=== PATIENT | male | born 1995 | race Caucasian/White ===

== ENCOUNTER 2021-06-01 12:07 | Emergency (ER) | payer BC ==
[~2021-06-01] VITALS: Ht 182.9 cm; Wt 104.5 kg
[2021-06-01 12:19] VITALS: BP 139/99
== END 2021-06-01 12:40 | disposition home or self-care (01) ==
LOC: ER 12:09
DX: S81.832D Puncture wound without foreign body, left lower leg, subsequent encounter (principal); Z48.00 Encounter for change or removal of nonsurgical wound dressing; X58.XXXD Exposure to other specified factors, subsequent encounter
CPT/HCPCS: 99281

== ENCOUNTER 2021-09-21 16:31 | Emergency (ER) | payer BC, OTHER ==
[~2021-09-21] VITALS: Ht 182.9 cm; Wt 106.8 kg
[2021-09-21 17:32] LABS: BASOPHILS # (AUTO) 0.1 X10'3 (0-0.2); BASOPHILS % (AUTO) 0.4 % (0-1); EOSINOPHILS # (AUTO) 0.1 X10'3 (0-0.9); EOSINOPHILS % (AUTO) 0.9 % (0-6); HEMATOCRIT 44.1 % (42.0-52.0); HEMOGLOBIN 15.4 g/dl (14.0-17.9); LYMPHOCYTES # (AUTO) 2.7 X10'3 (1.1-4.8); LYMPHOCYTES % (AUTO) 19.9 % (21-51); MEAN CORPUSCULAR HEMOGLOBIN 30.9 PG (27.0-31.0); MEAN CORPUSCULAR HGB CONC 34.9 g/dL (33.0-36.5); MEAN CORPUSCULAR VOLUME 88.7 FL (78-98); MEAN PLATELET VOLUME 7.8 FL (7.4-10.4); MONOCYTES # (AUTO) 1.8 X10'3 (0-0.9); MONOCYTES % (AUTO) 13.1 % (2-12); NEUTROPHILS # (AUTO) 8.9 X10'3 (1.8-7.7); NEUTROPHILS % (AUTO) 65.7 % (42-75); PLATELET COUNT 287 X10'3 (140-440); RED BLOOD COUNT 4.98 X10'6 (4.70-6.10); RED CELL DISTRIBUTION WIDTH 13.2 % (11.5-14.5); WHITE BLOOD COUNT 13.5 X10'3 (4.5-11.0)
[2021-09-21 17:54] LABS: ALANINE AMINOTRANSFERASE 55 U/L (12-78); ALBUMIN 4.4 G/DL (3.4-5.0); ALBUMIN/GLOBULIN RATIO 1.1 (1.1-1.5); ALKALINE PHOSPHATASE 147 IU/L (46-116); ANION GAP 9 (8-16); ASPARTATE AMINO TRANSFERASE 37 U/L (10-37); BILIRUBIN,TOTAL 0.3 MG/DL (0.1-1.0); BLOOD UREA NITROGEN 21 MG/DL (7-18); BUN/CREATININE RATIO 17.6 (5.4-32.0); CALCIUM 9.1 MG/DL (8.5-10.1); CHLORIDE 101 MMOL/L (99-107); CREATININE 1.19 MG/DL (0.60-1.10); POTASSIUM 4.2 MMOL/L (3.5-5.1); SODIUM 138 MMOL/L (135-145); TOTAL CARBON DIOXIDE 27.8 MMOL/L (24-32); TOTAL PROTEIN 8.3 G/DL (6.4-8.2); eGFR 73 ML/MIN
[2021-09-21 17:56] LABS: GLUCOSE 114 MG/DL (70-104)
[2021-09-21] MEDS ORDERED: gentamicin 0.1% topical ointment 15gm TP SCH (19:50)
[2021-09-21] MEDS ORDERED: LIDOcaine 40mg/ml topical solution MM ONE (19:50)
[2021-09-21] MEDS ORDERED: CEPH-585 PO (21:18)
[2021-09-21 21:41] VITALS: BP 128/82
== END 2021-09-21 21:44 | disposition home or self-care (01) ==
LOC: ER 16:31
DX: S80.812A Abrasion, left lower leg, initial encounter (principal); L03.116 Cellulitis of left lower limb; Z79.2 Long term (current) use of antibiotics; Z87.891 Personal history of nicotine dependence; Z72.89 Other problems related to lifestyle; Z86.718 Personal history of other venous thrombosis and embolism; X58.XXXA Exposure to other specified factors, initial encounter; Y93.89 Activity, other specified; Y92.89 Other specified places as the place of occurrence of the external cause; Y99.8 Other external cause status
CPT/HCPCS: 36415; 80053; 84145; 85025; 97597; 99285; J3490; 99283

== ENCOUNTER 2023-09-11 02:12 | Emergency (ER) | payer BC, OTHER ==
[~2023-09-11] VITALS: Ht 182.9 cm; Wt 110.0 kg
[2023-09-11 02:26] VITALS: TEMP 98.9
[2023-09-11] MEDS ORDERED: CEPH-585 PO (06:45)
[2023-09-11] MEDS ORDERED: SULF1TAB45 PO (06:45)
[2023-09-11 06:57] VITALS: BP 145/85; PULSE 85; RESP 16; O2SAT 98
== END 2023-09-11 07:00 | disposition home or self-care (01) ==
LOC: ER 02:12
DX: L03.114 Cellulitis of left upper limb (principal)
CPT/HCPCS: 73130; 99283

== ENCOUNTER 2025-04-29 16:59 | Emergency (ER) | payer BC ==
[~2025-04-29] VITALS: Ht 182.9 cm; Wt 111.4 kg
--- NOTE | 2025-04-29 18:20 | Physician Documentation ---
History of Present Illness ~ Chief Complaint: Leg Pain Stated Complaint: L LEG PAIN Time Seen by MD: 17:59 Source: patient Mode of Arrival: Ambulatory Exam Limitations: no limitations HPI 29-year-old male with some self for fasting anxiety is concerned because of left posterior calf pain times 3-4 days although patient frequency gym regularly and does work out his legs he was worried when he calf pain about a DVT. According to triage there is a small less than 2 cm discrepancy in calf size. Patient denies any shortness of breath or chest pain does state that his pectoralis muscle is sore but reproducible also from working out as well as slightly hung over from drinking heavily last night Tetanus witin 5 years: No Medication Reconciliation Allergies: Coded Allergies: No Known Allergies (Unverified , 09/21/21) Past Medical History Past Medical History: Vascular Disease, *PSYCH*, Anxiety Past Surgical History: noncontributory Alcohol Use: Occasionally Drug Use: none Lives In: Home Occupation: employed Review of Systems All Other Systems at this time: Reviewed and Negative Musculoskeletal: Reports: see HPI Physical Exam Vital Signs: RN Vital Signs have been reviewed: Yes, Temperature: 98.2, Source: Temporal, Heart Rate: 94, Respiratory Rate: 18, BP: 152/92, Pulse Oximetry: 95, Weight: 111.360 Oxygen Flow Rate: 0 Physical Exam General: Alert, no apparent distress. HEENT: moist mucous membranes. Neck: Full range of motion. Respiratory: No respiratory distress speaking in full sentences Chest: No accessory muscle use. Cardiovascular: Appears well perfused Extremities: Left posterior calf tenderness without erythema no asymmetry. No popliteal fossa tenderness Neurologic: Oriented x4. Psychiatric: Normal mood and affect. Skin: Normal color, warm and dry. No edema, no ecchymosis. Progress Results/Orders Results/Orders Orders - ABBEY BRYAN NP Vl Venous (04/29/25 17:33) Vital Signs 04/29/25 04/29/25 04/29/25 17:18 18:01 18:09 Temp 98.2 Pulse 92 94 Resp 16 18 B/P (MAP) 146/84 152/92 (112) Pulse Ox 96 95 O2 Flow Rate 0 0 Medical Decision Making Findings Patient concerned for left calf pain for DVT denies any clotting for coag history, no smoking, no anabolic steroid use. Ultrasound to evaluate for DVT has been ordered and unremarkable for any significant findings. This is likely musculoskeletal pain from activities at the gym. Patient will continue to monitor and follow up with primary care Wells' Criteria for DVT from [email or web address] on 04/29/2025 All calculations should be rechecked by clinician prior to use RESULT SUMMARY: 1 points Moderate risk group for DVT. See Next Steps for details. INPUTS: Active cancer > 0 = No Bedridden recently >3 days or major surgery within 12 weeks > 0 = No Calf swelling >3 cm compared to the other leg > 0 = No Collateral (nonvaricose) superficial veins present > 0 = No Entire leg swollen > 0 = No Localized tenderness along the deep venous system > 1 = Yes Pitting edema, confined to symptomatic leg > 0 = No Paralysis, paresis, or recent plaster immobilization of the lower extremity > 0 = No Previously documented DVT > 0 = No Alternative diagnosis to DVT as likely or more likely > 0 = No Departure Time of Disposition: 19:09 Disposition: 01 HOME / SELF CARE / HOMELESS Impression: Primary Impression: Lower extremity sprain Condition: Stable Discharge Instructions: Muscle Strain, [id number], RICE Therapy for Routine Care of Injuries, [id number] Additional Instructions: Ultrasound was negative for blood clot. This could be a muscle strain or sore muscles from working out at the gym or pitting your leg on a desk as we discussed. Follow up with your primary care provider at [facility] for annual labs and evaluation. Feel free to return to the ER for any new or worsening symptoms Referrals: NO PRIMARY CARE PROVIDER (PCP) Education Educated: Patient Educated regarding: diagnosis, treatment, need for follow up Signature Scribe Signature: No scribe Attestation: The note accurately reflects work and decisions made by me.Abbey Bryan - PRASANNA 04/29/25 18:21 ABBEY BRYAN NP Apr 29, 2025 18:19
[2025-04-29 19:57] VITALS: BP 143/83; PULSE 85; RESP 12; TEMP 98.2; O2SAT 96
== END 2025-04-29 20:00 | disposition home or self-care (01) ==
LOC: ER 17:00
DX: S93.692A Other sprain of left foot, initial encounter (principal); F41.9 Anxiety disorder, unspecified; Z86.718 Personal history of other venous thrombosis and embolism; Z72.89 Other problems related to lifestyle; X58.XXXA Exposure to other specified factors, initial encounter; Y93.89 Activity, other specified; Y92.89 Other specified places as the place of occurrence of the external cause; Y99.8 Other external cause status
CPT/HCPCS: 93971; 99284